=== PATIENT | male | born 1940 | race Caucasian/White ===

== ENCOUNTER 2023-03-21 18:36 | Inpatient (IN) | payer OTHER, MEDICARE ==
[~2023-03-21] VITALS: Ht 177.8 cm; Wt 65.0 kg
[2023-03-21] MEDS ORDERED: acetaminophen 325mg tablet PO STA (18:46)
[2023-03-21] MEDS ORDERED: albuterol 2.5 MG/3 ML nebule NEB ONE (18:50)
[2023-03-21] MEDS ORDERED: CefTRIAXone 2gm/D5W 50ml BAG 50 ML IV ONE (18:50)
--- NOTE | 2023-03-21 19:00 | NUR ---
PT STATES HE IS ALLERGIC TO SOME KIND OF ABX BUT DOESN'T KNOW WHICH ONES. HIS STATES HE HAS NO ALLERGIES AT ALL
[2023-03-21 19:26] LABS: ALANINE AMINOTRANSFERASE 40 U/L (12-78); ALBUMIN 2.8 G/DL (3.4-5.0); ALBUMIN/GLOBULIN RATIO 1.2 (1.1-1.5); ALKALINE PHOSPHATASE 39 IU/L (46-116); ANION GAP 9 (8-16); ASPARTATE AMINO TRANSFERASE 16 U/L (10-37); BILIRUBIN,TOTAL 0.8 MG/DL (0.1-1.0); BLOOD UREA NITROGEN 30 MG/DL (7-18); CALCIUM 7.8 MG/DL (8.5-10.1); CHLORIDE 104 MMOL/L (99-107); GLUCOSE 117 MG/DL (70-104); MAGNESIUM 1.7 MG/DL (1.5-2.4); SODIUM 138 MMOL/L (135-145); TOTAL PROTEIN 5.2 G/DL (6.4-8.2); eGFR 45 ML/MIN
[2023-03-21 19:56] LABS: BASOPHILS % (AUTO) 0.1 % (0-1); EOSINOPHILS % (AUTO) 0 % (0-6); HEMATOCRIT 39.2 % (42.0-52.0); HEMOGLOBIN 13.1 g/dl (14.0-17.9); LYMPHOCYTES # (AUTO) 0.6 X10'3 (1.1-4.8); LYMPHOCYTES % (AUTO) 3.6 % (21-51); MEAN CORPUSCULAR HEMOGLOBIN 29.6 PG (27.0-31.0); MEAN CORPUSCULAR HGB CONC 33.5 g/dL (33.0-36.5); MEAN CORPUSCULAR VOLUME 88.5 FL (78-98); MEAN PLATELET VOLUME 8.1 FL (7.4-10.4); NEUTROPHILS # (AUTO) 15.3 X10'3 (1.8-7.7); NEUTROPHILS % (AUTO) 90.3 % (42-75); PLATELET COUNT 202 X10'3 (140-440); RED BLOOD COUNT 4.43 X10'6 (4.70-6.10); RED CELL DISTRIBUTION WIDTH 13.9 % (11.5-14.5); WHITE BLOOD COUNT 16.9 X10'3 (4.5-11.0)
[2023-03-21] MEDS ORDERED: magnesium 4gm in 100ml NS 100 ML IV PRN (21:10)
[2023-03-21] MEDS ORDERED: mag hydrox/Alum hydrox/simeth 30ml oral suspension PO PRN (21:10)
[2023-03-21] MEDS ORDERED: potassium Cl 40MEQ/1/2NS 520ml 520 ML IV PRN (21:10)
[2023-03-21] MEDS ORDERED: ondansetron/PF 4mg/2ml inj IV PRN (21:10)
[2023-03-21] MEDS ORDERED: magnesium hydroxide 30ml (MOM) UD suspension PO PRN (21:10)
[2023-03-21] MEDS ORDERED: potassium Cl 20 mEq SR tablet PO PRN ×2 (21:10)
--- NOTE | 2023-03-21 22:17 | NUR ---
pt placed on hospital bed
[2023-03-21 22:18] LABS: D-DIMER < 0.19 MG/L FEU (0-0.50)
[2023-03-21] MEDS ORDERED: normal saline 500ml IV soln 500 ML IV ONE (23:30)
[2023-03-22] MEDS: temazepam 15mg capsule PO PRN ×2 (00:08→23:15)
--- NOTE | 2023-03-22 01:15 | NUR ---
ED BED 2--PT HYPOTENSIVE, TEMP INCREASING. [id number]
[2023-03-22] MEDS ORDERED: normal saline 500ml IV soln 500 ML IV ONE (01:20)
--- NOTE | 2023-03-22 01:31 | NUR ---
ED 2- PT IN TRIGEMINY, REMAINS HYPOTENSIVE, NO URINE. PRESSORS? [id number]
[2023-03-22 01:32] LABS: MEAN CORPUSCULAR HEMOGLOBIN 29.6 PG (27.0-31.0)
[2023-03-22 01:34] LABS: BASOPHILS % (AUTO) 0.1 % (0-1); EOSINOPHILS % (AUTO) 0 % (0-6); HEMATOCRIT 38.3 % (42.0-52.0); HEMOGLOBIN 12.7 g/dl (14.0-17.9); LYMPHOCYTES # (AUTO) 0.6 X10'3 (1.1-4.8); LYMPHOCYTES % (AUTO) 5.1 % (21-51); MEAN CORPUSCULAR HGB CONC 33.1 g/dL (33.0-36.5); MEAN CORPUSCULAR VOLUME 89.4 FL (78-98); MEAN PLATELET VOLUME 8.3 FL (7.4-10.4); MONOCYTES # (AUTO) 0.6 X10'3 (0-0.9); NEUTROPHILS # (AUTO) 10.1 X10'3 (1.8-7.7); NEUTROPHILS % (AUTO) 89.8 % (42-75); PLATELET COUNT 177 X10'3 (140-440); RED BLOOD COUNT 4.28 X10'6 (4.70-6.10); WHITE BLOOD COUNT 11.3 X10'3 (4.5-11.0)
[2023-03-22 01:41] LABS: ALANINE AMINOTRANSFERASE 37 U/L (12-78); ALBUMIN 2.7 G/DL (3.4-5.0); ALBUMIN/GLOBULIN RATIO 1.1 (1.1-1.5); ALKALINE PHOSPHATASE 37 IU/L (46-116); ANION GAP 10 (8-16); ASPARTATE AMINO TRANSFERASE 15 U/L (10-37); BILIRUBIN,TOTAL 0.5 MG/DL (0.1-1.0); BLOOD UREA NITROGEN 34 MG/DL (7-18); BUN/CREATININE RATIO 18.8 (10.0-20.0); CALCIUM 8.2 MG/DL (8.5-10.1); CHLORIDE 102 MMOL/L (99-107); CREATININE 1.81 MG/DL (0.60-1.10); GLUCOSE 137 MG/DL (70-104); POTASSIUM 3.5 MMOL/L (3.5-5.1); SODIUM 139 MMOL/L (135-145); TOTAL CARBON DIOXIDE 27.3 MMOL/L (24-32); TOTAL PROTEIN 5.1 G/DL (6.4-8.2); eGFR 36 ML/MIN
[2023-03-22 01:43] LABS: MAGNESIUM 1.9 MG/DL (1.5-2.4)
[2023-03-22] MEDS: normal saline 1000ml 1,000 ML IV SCH ×2 (01:46→09:00)
--- NOTE | 2023-03-22 02:22 | NUR ---
PER DR FLEMING, NO PRESSORS
[2023-03-22] MEDS ORDERED: normal saline 1000ml 1,000 ML IV ONE (02:35)
[2023-03-22] MEDS ORDERED: LIDOcaine 2% 10ml TOPICAL JELLY (Urojet) MM ONE (02:35)
[2023-03-22] MEDS ORDERED: LidoCAINE 2% Topical Jelly 11mL syringe MM ONE (02:35)
[2023-03-22] MEDS ORDERED: albuterol 2.5 MG/3 ML nebule NEB PRN (02:50)
[2023-03-22] MEDS: acetaminophen 325mg tablet PO PRN (03:01)
[2023-03-22 03:17] LABS: COLOR,URINE YELLOW (Yellow); GLUCOSE, URINE NEGATIVE (Neg); KETONES,URINE TRACE mg/dl (Neg); LEUKOCYTE ESTERASE ,URINE NEGATIVE (Neg); NITRITES, URINE NEGATIVE (Neg); OCCULT BLOOD,URINE NEGATIVE (Neg); PH,URINE 5.5 (4.8-8.0); PROTEIN,URINE NEGATIVE (Neg); UROBILINOGEN,URINE 0.2 E.U/dL (0.2-1.0)
[2023-03-22 03:31] LABS: CLARITY,URINE SLIGHTLY CLOUDY (Clear); UA COLLECTION TYPE FOLEY CATH
[2023-03-22 03:32] LABS: BACTERIA,URINE NONE SEEN /HPF (Neg); MUCUS STRANDS MODERATE /LPF (Neg); RBC,URINE 0-2 /HPF (0-2); SQUAMOUS EPITHELIAL CELL,UR FEW /LPF (FEW); WBC,URINE 0-4 /HPF (0-4)
[2023-03-22 03:33] LABS: RENAL CELLS, URINE FEW /HPF
--- NOTE | 2023-03-22 04:14 | NUR ---
DR FLEMING INFORMED PT TEMPERATURE STILL AT 101.5 ONE HOUR AFTER PRN TYLENOL GIVEN FOR TEMP. PREVIOUSLY 101.7. NO NEW ORDERS AT THIS TIME. IBUPROFEN NOT GIVEN DUE TO PTS KIDNEY FUNCTION
[2023-03-22] MEDS ORDERED: vancomycin inj 1,000 MG in normal saline 250ml IV soln 250 ML IV ONE (07:35)
[2023-03-22] MEDS ORDERED: VANCOmycin 2,000MG in NS 500ml IV soln IV ONE (07:50)
[2023-03-22] MEDS: K and/or MAG REPLACEMENT MC SCH ×2 (08:00→20:00)
[2023-03-22] MEDS: docusate sod 100mg capsule PO SCH ×2 (08:00→20:52)
[2023-03-22] MEDS: methylPREDNISolone sod succ 125mg/2ml vial IV SCH ×2 (09:17→17:08)
[2023-03-22] MEDS: ipratropium/albuterol 3ml nebule NEB PRN ×2 (09:36→13:39)
[2023-03-22] MEDS: CefTRIAXone/D5W-Rocephin 1gm 50 ML IV SCH (09:39)
[2023-03-22] MEDS: heparin, porcine 5000 units/ml vial SQ SCH ×2 (09:40→20:54)
[2023-03-22] MEDS: azithromycin 250mg tablet PO SCH (09:40)
[2023-03-22] MEDS ORDERED: LISI1TAB53 PO (13:06)
[2023-03-22] MEDS ORDERED: ALBU8HFA PO (13:06)
[2023-03-22] MEDS ORDERED: TIOT18CA3 PO (13:06)
[2023-03-22] MEDS ORDERED: MOME13HF12 INH (13:06)
[2023-03-22] MEDS ORDERED: ROSU40TA PO (13:06)
[2023-03-22] MEDS ORDERED: CYAN-104 PO (13:06)
[2023-03-22] MEDS ORDERED: ASPI-611 PO (13:06)
[2023-03-22] MEDS ORDERED: ALEN70TA37 PO (13:06)
[2023-03-22] MEDS ORDERED: LORA10TA7 PO (13:06)
[2023-03-22] MEDS ORDERED: CHOL500050 PO (13:06)
--- NOTE | 2023-03-22 13:30 | NUR ---
Pt seen by hospitalist Dr. Camilo, received VO to DC IV fluid of NS at 150mlhr and changing IV to SL
[2023-03-22] MEDS ORDERED: regadenoson 0.4mg/5ml syringe IV PRN (14:15)
[2023-03-22] MEDS ORDERED: nitroGLYCERIN 0.4mg SUBLingual tab SL PRN (14:15)
[2023-03-22] MEDS ORDERED: metoprolol tartrate 1mg/ml inj IV PRN (14:15)
[2023-03-22] MEDS ORDERED: aminophylline 250mg/10ml inj. IV PRN (14:15)
[2023-03-22] MEDS ORDERED: loratadine 10mg tablet PO PRN (16:45)
--- NOTE | 2023-03-22 16:50 | NUR ---
ATTEMPTED TO CALL ER TO RECEIVE REPORT
--- NOTE | 2023-03-22 16:59 | NUR ---
Patient in room ED 2. I have received report from DAVID PIPER and had the opportunity to ask questions and assume patient care.
--- NOTE | 2023-03-22 17:13 | NUR ---
PER PHARMACIST LET NIGHT NURSE KNOW TO GIVE PT SOLUMEDROL AT 2300 INSTEAD OF 2100.
[2023-03-22 18:00] VITALS: BP 111/61
--- NOTE | 2023-03-22 18:14 | NUR ---
PT ARRIVED TO THE FLOOR AT ABOUT 1740, PT IS STABLE, A/O X3, 2L NC AND NOT LABORED WITH BREATH SOUNDS, NOT CONFUSED, NO PAIN MENTIONED BESIDES OLD IV THAT I TOOK OUT, BP WAS TAKEN BY THE AIDE AND GIVEN TO THE NIGHT NURSE TAMIKA. PT IS AT THE BEDSIDE, ALL ABNORMALS WILL BE ADDRESSED WITH NIGHT NURSE. PT IS STABLE FOR NIGHT NURSE AT CHANGE OF SHIFT REPORT.
--- NOTE | 2023-03-22 18:20 | NUR ---
Page Sent PAGER ID: [phone] MESSAGE: [id number] MARINE, PLEASE CALL ME ABOUT PTS FLUID ORDER. THANKS REY Addendum: 03/23/23 at 0841 by Tab Torres RN CALLED BACK SAID HE ADDED PT. HOME MED [facility] (k+ BINDER) AND HE ORDERED [facility] FOR 1500H
--- NOTE | 2023-03-22 18:29 | NUR ---
Problems reprioritized. Patient report given, questions answered & plan of care reviewed with TAMIKA PIPER.
[2023-03-22] MEDS ORDERED: normal saline 500ml IV soln 500 ML IV PRN (18:35)
[2023-03-22] MEDS: methylPREDNISolone sod succ/PF 40mg inj. IV SCH (20:52)
[2023-03-22] MEDS: ipratropium/albuterol 3ml nebule NEB SCH (20:59)
[2023-03-22] MEDS: budesonide 0.5mg/2ml UD nebule IH SCH (21:00)
[2023-03-22 22:00] VITALS: BP 99/57
[2023-03-23] MEDS: ipratropium/albuterol 3ml nebule NEB SCH ×4 (02:29→20:05)
[2023-03-23] MEDS ORDERED: HALLS - SOOTHE MENTHOL 1.8 MG cough drop LOZENGE MM PRN (04:10)
[2023-03-23 06:46] LABS: BASOPHILS % (AUTO) 0.1 % (0-1); EOSINOPHILS % (AUTO) 0 % (0-6); HEMATOCRIT 38.1 % (42.0-52.0); HEMOGLOBIN 13.1 g/dl (14.0-17.9); LYMPHOCYTES # (AUTO) 0.4 X10'3 (1.1-4.8); LYMPHOCYTES % (AUTO) 3.6 % (21-51); MEAN CORPUSCULAR HEMOGLOBIN 30.4 PG (27.0-31.0); MEAN CORPUSCULAR HGB CONC 34.4 g/dL (33.0-36.5); MEAN CORPUSCULAR VOLUME 88.3 FL (78-98); MEAN PLATELET VOLUME 8.7 FL (7.4-10.4); MONOCYTES # (AUTO) 0.2 X10'3 (0-0.9); MONOCYTES % (AUTO) 2.2 % (2-12); NEUTROPHILS # (AUTO) 10.1 X10'3 (1.8-7.7); NEUTROPHILS % (AUTO) 94.1 % (42-75); PLATELET COUNT 178 X10'3 (140-440); RED BLOOD COUNT 4.32 X10'6 (4.70-6.10); RED CELL DISTRIBUTION WIDTH 14.1 % (11.5-14.5); WHITE BLOOD COUNT 10.8 X10'3 (4.5-11.0)
[2023-03-23 06:49] LABS: ALANINE AMINOTRANSFERASE 43 U/L (12-78); ALBUMIN 2.6 G/DL (3.4-5.0); ALBUMIN/GLOBULIN RATIO 0.9 (1.1-1.5); ALKALINE PHOSPHATASE 44 IU/L (46-116); ANION GAP 10 (8-16); ASPARTATE AMINO TRANSFERASE 25 U/L (10-37); BILIRUBIN,TOTAL 0.3 MG/DL (0.1-1.0); BLOOD UREA NITROGEN 23 MG/DL (7-18); BUN/CREATININE RATIO 16.9 (10.0-20.0); CALCIUM 8.1 MG/DL (8.5-10.1); CHLORIDE 106 MMOL/L (99-107); CREATININE 1.36 MG/DL (0.60-1.10); GLUCOSE 170 MG/DL (70-104); MAGNESIUM 2.1 MG/DL (1.5-2.4); POTASSIUM 4.1 MMOL/L (3.5-5.1); SODIUM 140 MMOL/L (135-145); TOTAL CARBON DIOXIDE 23.9 MMOL/L (24-32); TOTAL PROTEIN 5.5 G/DL (6.4-8.2); eGFR 50 ML/MIN
--- NOTE | 2023-03-23 06:49 | NUR ---
Problems reprioritized. Patient report given, questions answered & plan of care reviewed with LAUREEN. Addendum: 03/23/23 at 0649 by Arnaldo Wills RN Amended: Links added.
--- NOTE | 2023-03-23 06:49 | NUR ---
Patient in room ORTHO 4014. I have received report from TAMIKA PIPER and had the opportunity to ask questions and assume patient care.
[2023-03-23 07:00] VITALS: BP 103/46
[2023-03-23] MEDS: K and/or MAG REPLACEMENT MC SCH ×2 (08:00→20:00)
[2023-03-23] MEDS: azithromycin 250mg tablet PO SCH ×2 (08:00→08:09)
[2023-03-23] MEDS ORDERED: cholecalciferol (vitamin D3) 1,000 unit (25mcg) tablet PO SCH (08:00)
[2023-03-23] MEDS ORDERED: aspirin 325mg tablet, delayed-release (Ecotrin) PO SCH (08:00)
[2023-03-23] MEDS: budesonide 0.5mg/2ml UD nebule IH SCH ×2 (08:02→20:05)
[2023-03-23] MEDS: heparin, porcine 5000 units/ml vial SQ SCH ×2 (08:08→21:02)
[2023-03-23] MEDS: methylPREDNISolone sod succ/PF 40mg inj. IV SCH ×3 (08:08→21:00)
[2023-03-23] MEDS: atorvastatin 20mg tablet PO SCH (08:09)
[2023-03-23] MEDS: docusate sod 100mg capsule PO SCH ×2 (08:09→21:01)
[2023-03-23] MEDS: aspirin 81mg, enteric-coated 1 TAB TABLET.DR PO SCH (08:09)
[2023-03-23] MEDS: CefTRIAXone/D5W-Rocephin 1gm 50 ML IV SCH (08:10)
--- NOTE | 2023-03-23 08:38 | NUR ---
PAGER ID: [phone] MESSAGE: ROZINA TAVAREZ, [id number], RE: [id number], AZITHROMYCIN TAB ORDERED, PT. IS ALLERGIC TO CLARITHROMYCIN. PHARMACY SAID TO PAGE YOU SINCE THEY ARE IN THE SAME CLASS. DO YOU WANT TO ADMINISTER? THANKS Addendum: 03/23/23 at 0839 by Tab Torres RN CALLED BACK SAID TO DISCONTINUE AZITHROMYCIN TAB
[2023-03-23] MEDS ORDERED: VANCOMYCIN 750MG IV in NS 250 ML IV SCH (09:00)
[2023-03-23] MEDS ORDERED: vancomycin/NS 1 GM ADD-VANTAGE 250 ML IV SCH (10:00)
[2023-03-23 10:43] VITALS: BP 99/51
--- NOTE | 2023-03-23 12:28 | NUR ---
PT. GAMBLE DC. TOLERATED WELL , 900ML DRAINED. WILL MONITOR URINE OUTPUT
--- NOTE | 2023-03-23 14:26 | NUR ---
PT. PULSE OX 93% 02 WITHOUT OXYGEN. WILL MONITOR PULSE OX Q30MIN.
--- NOTE | 2023-03-23 16:02 | NUR ---
PATIENT NOTIFIED US THAT THEIR PCP THROUGH [facility] IS CHELLY BARFIELD. PATIENT REQUESTED US TO ADD INTO CHARTING SYSTEM.
[2023-03-23] MEDS ORDERED: cyanocobalamin 500mcg tablet PO SCH (16:45)
[2023-03-23 18:00] VITALS: BP 102/59
--- NOTE | 2023-03-23 18:25 | NUR ---
Problems reprioritized. Patient report given TO TAMIKA PIPER, questions answered & plan of care reviewed with .
--- NOTE | 2023-03-23 18:29 | NUR ---
[place] documentation: I have reviewed all interventions, assessments performed and documented by Cristobal PIPER. [place] Medication Administration: For this medication-pass time frame, all medication were reviewed, dispensed, administered and documented per hospital policy by Cristobal PIPER.
[2023-03-23] MEDS: temazepam 15mg capsule PO PRN (22:08)
[2023-03-24] MEDS ORDERED: temazepam 15mg capsule PO PRN (02:10)
[2023-03-24] MEDS: acetaminophen 325mg tablet PO PRN (02:20)
[2023-03-24] MEDS: ipratropium/albuterol 3ml nebule NEB SCH ×3 (02:55→14:23)
[2023-03-24 06:00] VITALS: BP 107/57
--- NOTE | 2023-03-24 06:00 | NUR ---
RECEIVED REPORT FROM FELIZ LUNDBERG
--- NOTE | 2023-03-24 06:20 | NUR ---
Problems reprioritized. Patient report given, questions answered & plan of care reviewed with SUE. Addendum: 03/24/23 at 0620 by Arnaldo Wills RN Amended: Links added.
[2023-03-24 06:49] LABS: BASOPHILS % (AUTO) 0 % (0-1); EOSINOPHILS % (AUTO) 0 % (0-6); HEMATOCRIT 37.5 % (42.0-52.0); HEMOGLOBIN 12.3 g/dl (14.0-17.9); LYMPHOCYTES # (AUTO) 0.3 X10'3 (1.1-4.8); LYMPHOCYTES % (AUTO) 2.1 % (21-51); MEAN CORPUSCULAR HEMOGLOBIN 29.4 PG (27.0-31.0); MEAN CORPUSCULAR HGB CONC 32.9 g/dL (33.0-36.5); MEAN CORPUSCULAR VOLUME 89.4 FL (78-98); MONOCYTES # (AUTO) 0.5 X10'3 (0-0.9); MONOCYTES % (AUTO) 3.2 % (2-12); NEUTROPHILS # (AUTO) 14.8 X10'3 (1.8-7.7); NEUTROPHILS % (AUTO) 94.7 % (42-75); PLATELET COUNT 200 X10'3 (140-440); RED BLOOD COUNT 4.19 X10'6 (4.70-6.10); RED CELL DISTRIBUTION WIDTH 13.8 % (11.5-14.5); WHITE BLOOD COUNT 15.6 X10'3 (4.5-11.0)
[2023-03-24 07:01] LABS: ALANINE AMINOTRANSFERASE 53 U/L (12-78); ALBUMIN 2.6 G/DL (3.4-5.0); ALKALINE PHOSPHATASE 42 IU/L (46-116); ANION GAP 9 (8-16); ASPARTATE AMINO TRANSFERASE 30 U/L (10-37); BILIRUBIN,TOTAL 0.4 MG/DL (0.1-1.0); BLOOD UREA NITROGEN 24 MG/DL (7-18); CALCIUM 7.8 MG/DL (8.5-10.1); CHLORIDE 99 MMOL/L (99-107); GLUCOSE 157 MG/DL (70-104); MAGNESIUM 1.9 MG/DL (1.5-2.4); POTASSIUM 4.3 MMOL/L (3.5-5.1); SODIUM 133 MMOL/L (135-145); TOTAL CARBON DIOXIDE 24.8 MMOL/L (24-32); TOTAL PROTEIN 5.1 G/DL (6.4-8.2); eGFR 45 ML/MIN
[2023-03-24] MEDS: K and/or MAG REPLACEMENT MC SCH (08:00)
[2023-03-24] MEDS: budesonide 0.5mg/2ml UD nebule IH SCH (08:12)
[2023-03-24] MEDS: atorvastatin 20mg tablet PO SCH (09:31)
[2023-03-24] MEDS: docusate sod 100mg capsule PO SCH (09:32)
[2023-03-24] MEDS: aspirin 81mg, enteric-coated 1 TAB TABLET.DR PO SCH (09:33)
[2023-03-24] MEDS: heparin, porcine 5000 units/ml vial SQ SCH (09:38)
[2023-03-24] MEDS: methylPREDNISolone sod succ/PF 40mg inj. IV SCH ×2 (09:43→12:38)
[2023-03-24] MEDS: CefTRIAXone/D5W-Rocephin 1gm 50 ML IV SCH (09:46)
[2023-03-24 10:00] VITALS: BP 136/58
[2023-03-24] MEDS ORDERED: VANCOMYCIN 750MG IV in NS 250 ML IV SCH (11:00)
[2023-03-24] MEDS ORDERED: CEFD300C3 PO (13:45)
[2023-03-24] MEDS ORDERED: PRED20TA PO (13:45)
--- NOTE | 2023-03-24 15:39 | NUR ---
pt d/c with instructions, understanding instructions and with all belongings in wheelchair accompanied by to private vehicle to go home and f/u w/pcp
[2023-03-25] MEDS ORDERED: VANCOMYCIN LEVEL IV ONE (08:30)
[2023-03-27] MEDS ORDERED: VANCOMYCIN LEVEL IV ONE ×2 (09:30→10:30)
== END 2023-03-24 15:20 | disposition home or self-care (01) | DRG 871 ==
LOC: ER 18:37 → ED HOLD 21:21 → ORTHO 4S 03-22 17:36
PROVIDERS: ADMIT Family Medicine; ATTEND Family Medicine
DX: A41.9 Sepsis, unspecified organism (principal); J18.9 Pneumonia, unspecified organism; J96.01 Acute respiratory failure with hypoxia; J44.1 Chronic obstructive pulmonary disease with (acute) exacerbation; N17.9 Acute kidney failure, unspecified; J44.0 Chronic obstructive pulmonary disease with (acute) lower respiratory infection; Z66 Do not resuscitate; Z20.822 Contact with and (suspected) exposure to COVID-19; I95.9 Hypotension, unspecified; M35.3 Polymyalgia rheumatica; Z79.51 Long term (current) use of inhaled steroids; Z79.52 Long term (current) use of systemic steroids; Z82.49 Family history of ischemic heart disease and other diseases of the circulatory system; Z87.891 Personal history of nicotine dependence; I69.344 Monoplegia of lower limb following cerebral infarction affecting left non-dominant side; Z79.899 Other long term (current) drug therapy; Z79.82 Long term (current) use of aspirin
CPT/HCPCS: 36415; 71045; 80053; 81001; 83605; 83735; 83880; 84145; 84484; 85025; 85379; 87040; 87081; 87811; 94640; 94760; 97110; 97116; 97161; 97530; 99285; G0378; J0696; J1644; J2405; J2920; J2930; J3370; J7030; J7040; J7050